=== PATIENT | female | born 1985 | race Hispanic/Latino ===

== ENCOUNTER 2018-10-22 11:55 | Emergency (ER) | payer OTHER ==
[2018-10-22 12:07] VITALS: BP 104/70; PULSE 66; RESP 16; TEMP 98; O2SAT 98
[2018-10-22] MEDS ORDERED: Tdap Vaccine 0.5 ml Vial (10-64 yrs) IM ONE (12:23)
[2018-10-22] MEDS ORDERED: Lidocaine 2% Inj (20ml) INFIL ONE (12:24)
[2018-10-22] MEDS ORDERED: Lidocaine 1% Inj (20ml) ONE (12:33)
--- NOTE | 2018-10-22 12:43 | ED PDOC ---
Upper Extremity Pain/Injury Time Seen by Provider: 10/22/18 12:20 Chief Complaint (Nursing): Finger,Hand,&Wrist Chief Complaint (Provider): Left Hand Injury History Per: Patient History/Exam Limitations: no limitations Onset/Duration Of Symptoms: Mins (just prior to arrival) Current Symptoms Are (Timing): Still Present Additional Complaint(s): 32 year old female presents to the ED for evaluation of a left hand injury just prior to arrival. Patient reports that she was cutting frozen cheese at home when she accidentally cut her palm with the knife. Denies difficulty moving her fingers, numbness, and tingling. Right hand dominant Tetanus not up to date PMD: none provided Past Medical History Reviewed: Historical Data, Nursing Documentation, Vital Signs Vital Signs: Last Vital Signs Temp 98 F 10/22/18 12:05 Pulse 66 10/22/18 12:05 Resp 16 10/22/18 12:05 BP 104/70 10/22/18 12:05 Pulse Ox 98 10/22/18 12:05 - Medical History PMH: No Chronic Diseases - Surgical History Surgical History: No Surg Hx - Family History Family History: States: Unknown Family Hx - Social History Current smoker - smoking cessation education provided: No Alcohol: None Drugs: Denies - Allergies Allergies/Adverse Reactions: Allergies Allergy/AdvReac Type Severity Reaction Status Date / Time Penicillins Allergy RASH Verified 10/22/18 12:03 Review of Systems ROS Statement: Except As Marked, All Systems Reviewed And Found Negative Musculoskeletal: Negative for: Other (difficulty moving fingers) Skin: Positive for: Other (laceration on left palm) Neurological: Negative for: Numbness (or tingling) Physical Exam - Reviewed Nursing Documentation Reviewed: Yes Vital Signs Reviewed: Yes - Physical Exam Appears: Positive for: No Acute Distress Cardiovascular/Chest: Positive for: Regular Rate, Rhythm Respiratory: Negative for: Respiratory Distress Extremity: Positive for: Normal ROM (of left hand and all digits), Other (1.5cm laceration of mid-palmar surface of left hand) Neurologic/Psych: Negative for: Motor/Sensory Deficits - ECG O2 Sat by Pulse Oximetry: 98 (RA) Pulse Ox Interpretation: Normal Medical Decision Making Medical Decision Making: Time: 1223 Initial Impression: left hand laceration Initial Plan: --Tetanus booster --Lido 1% 2ml INFIL --Wound sutured with no complications, see procedure note. Patient educated on further wound care and return parameters discussed. Scribe Attestation: Documented by Raeann Vallejo acting as a scribe for Narciso Gramajo PA-C. Provider Scribe Attestation: All medical record entries made by the Scribe were at my direction and personally dictated by me. I have reviewed the chart and agree that the record accurately reflects my personal performance of the history, physical exam, medical decision making, and the department course for this patient. I have also personally directed, reviewed, and agree with the discharge instructions and disposition. Procedures - Time-Out Type of Procedure: suture repair Site of Procedure: left hand mid-palmar surface Correct Patient: Yes Correct Procedure: Yes PA/Tech: Narciso Gramajo PA-C - Laceration/Wound Repair Left Hand Wound Length (cm): 1.5 Wound's Depth, Shape: superficial, linear Irrigated w/ Saline (ccs): 2 Betadine Prep?: Yes Anesthesia: 1% Lidocaine Volume Anesthetic (ccs): 2 Wound Repaired With: Sutures Suture Size/Type: 4:0, nylon Number of Sutures: 2 (interrupted) Wound Complexity: Simple Sterile Dressing Applied?: Yes Disposition - Clinical Impression Clinical Impression: Hand laceration - Patient ED Disposition Is Patient to be Admitted: No - Disposition Disposition: Routine/Home Disposition Time: 13:10 Condition: FAIR Additional Instructions: F/U WITH ED/URGENT CARE/PMD IN 7 TO 10 DAYS FOR REMOVAL OF SUTURES. Instructions: Laceration Repair With Stitches (DC) Forms: [employer] (E[place]ian)
[2018-10-22] MEDS ORDERED: Lidocaine 1% Inj (20ml) INFIL ONE (13:13)
== END 2018-10-22 13:10 | disposition home or self-care (01) ==
LOC: H.ER 11:55
DX: S61.412A Laceration without foreign body of left hand, initial encounter (principal); W26.0XXA Contact with knife, initial encounter; Y92.89 Other specified places as the place of occurrence of the external cause; Z88.0 Allergy status to penicillin